=== PATIENT | female | born 1950 | race Hispanic/Latino ===

== ENCOUNTER → 2018-03-27 | Outpatient (CLI) | payer MEDICARE, BC ==
[~2018-03-27] MED LIST: CALTRATE 600+D1 EACH PO; CELEBREX200 MG PO; CENTRUM SILVER1 EAC3 PO; CYCLOBENZAPRINE10 MG PO; FOLIC ACID1 MG PO; MAGNESIUM PO; METAMUCIL PO; METHOTREXATE2.5 MG PO; OMEGA 3 PO; OMEPRAZOLE40 MG PO; OSTEO BI-FLEX1 EAC2 PO; PREDNISONE5 MG PO; RESTASIS1 EACH OU; TUMS PO; ULTRAM50 MG PO; VITAMIN B12 PO; VITAMIN D1000 UNI1 PO
--- NOTE | 2018-03-27 13:59 | Diagnostic Imaging Report ---
Exam: Bone mineral density study. History: Osteopenia. Comparison: 02/06/2017 Discussion: Evaluation of the left hip and lumbar spine was performed utilizing DEXA Hologic bone densitometer. The study is technically adequate. Left hip total bone mineral density: 0.831gm/cm2, T score is -0.9 Z-score is 0.5. Left hip femoral neck bone mineral density: 0.671gm/cm2, T score is -1.6 Z-score is 0.1. Lumbar spine total bone mineral density:0.871gm/cm2, T score is -1.6 Z-score is 0.4. Impression: Osteopenia of the left hip, fracture risk is increased. Osteopenia of the lumbar spine, fracture risk is increased. Bone mineral density change in the left hip versus baseline is -3.7% bone mineral density change versus prior is 1.1% Least significant change (LSC) for bone mineral density as provided by glass blowing instructor is 0.023 g/cm2 for lumbar spine and 0.027 g/cm2 for total hip. 10 -year fracture risk per WHO Fracture Risk Assessment Tool (FRAX) for: Not reported because patient treated for osteoporosis The patient's fracture risk is compared to an age-matched control. Medical evaluation for secondary causes of low bone bone mineral density may be appropriate. Correlate clinically for the necessity and timing of the next bone mineral density study. Signed by: Dr. Vega Aldridge M.D. on 03/27/2018 1:55 PM
== END ==
LOC: DX 12:44
PROVIDERS: ATTEND Internal Medicine Rheumatology
DX: M81.0 Age-related osteoporosis without current pathological fracture (principal); M06.9 Rheumatoid arthritis, unspecified; Z79.899 Other long term (current) drug therapy
CPT/HCPCS: 77080

== ENCOUNTER → 2019-02-26 | Outpatient (CLI) | payer MEDICARE, BC ==
--- NOTE | 2019-03-10 09:27 | Diagnostic Imaging Report ---
#[id number] - MGSCRBIL #BILATERAL DIGITAL SCREENING MAMMOGRAM WITH CAD: 02/26/2019 CLINICAL: Routine screening. Comparison is made to exam dated: 02/06/2017 mammogram - [facility]. Current study contains 4 films. There are scattered fibroglandular elements in both breasts. Current study was also evaluated with a Computer Aided Detection (CAD) system. There are benign calcifications in both breasts. There is a metallic structure in the right axilla. No significant masses, calcifications, or other findings are seen in either breast. IMPRESSION: BENIGN There is no mammographic evidence of malignancy. A 1 year screening mammogram is recommended. The patient will be notified by letter of the results. CARMELLA BRITTON M.D. ct/penrad:03/06/2019 10:25:35 Teacher'S Aide: Yazmin BANEGAS)([place]), [facility] letter sent: Normal Exam Mammogram BI-RADS: 2 Benign
== END ==
LOC: MAMMO 12:18
PROVIDERS: ATTEND Family Medicine
DX: Z12.31 Encounter for screening mammogram for malignant neoplasm of breast (principal)
CPT/HCPCS: 77067

== ENCOUNTER → 2019-03-30 | Outpatient (CLI) | payer MEDICARE, BC ==
--- NOTE | 2019-03-31 16:40 | Diagnostic Imaging Report ---
Exam: Bone mineral density study. History: Osteoporosis, screening, history of prednisone therapy Comparison: Baseline May 19, 2015, most recently May 27, 2018. Discussion: Evaluation of the left hip and lumbar spine was performed. The study is technically adequate. The patient's fracture risk is compared to an age-matched control. The patient denies prior surgery/fracture of the spine, hips or forearm. Left hip femoral neck bone mineral density: 0.7 g/cm2, T-score is -1.6, Z-score is 0.1. Left hip total bone mineral density: 0.8 g/cm2, T-score is -1, Z-score is 0.4. A -4.4% change since baseline. Lumbar spine total bone mineral density: 0.9 g/cm2, T-score is -1.5, Z-score is 0.6. No statistically significant interval changes. Impression: 1. Bone mineralization by WHO Classification is low bone mass/osteopenia, the fracture risk is increased. 2. The FRAX 10-year probability of major osteoporotic fracture is 7.3% and hip fracture is 1.2%. These probabilities assume the patient is untreated. Signed by: Dr. Damian Naik D.O., M.M.M. on 03/31/2019 4:37 PM
== END ==
LOC: DX 12:41
PROVIDERS: ATTEND Internal Medicine Rheumatology
DX: M81.0 Age-related osteoporosis without current pathological fracture (principal)
CPT/HCPCS: 77080

== ENCOUNTER → 2020-06-21 | Outpatient (CLI) | payer MEDICARE, BC | LOC: MAMMO 12:50 | PROVIDERS: ATTEND Internal Medicine Rheumatology | DX: Z12.31 Encounter for screening mammogram for malignant neoplasm of breast (principal); M81.0 Age-related osteoporosis without current pathological fracture | CPT/HCPCS: 77067; 77080 ==